=== PATIENT | male | born 1965 | race American Indian/Alaskan Native ===

== ENCOUNTER 2020-12-15 12:16 | Emergency (ER) | payer BC ==
[2020-12-15 15:07] VITALS: BP 148/103
--- NOTE | 2020-12-15 15:13 | Emergency Department Report ---
ED General Adult HPI - General Chief complaint: Overdose Stated complaint: ACCIDENTALLY DRINK HAND PRODUCT LISTER Time Seen by Provider: 12/15/20 15:09 Source: patient Mode of arrival: Ambulatory Limitations: No Limitations - History of Present Illness Initial comments: Patient is a 55-year-old male presents emergency room due to accidentally drinking hand sales support consultant. He states he has had a dry cough over the last couple days and was trying to take cough syrup to suppress his cough. He states that he had a small bottle and actually drank approximately half of it and then realized what he did. He states he then reported to the emergency room. He denies any symptoms at all just was concerned because he knew that he was not supposed to drink that. He denies any headache, vision changes, nausea, vomiting, diarrhea, chest pain, shortness of breath. He denies any fever, rhinorrhea, congestion. He denies any known sick contacts or recent travel. He has a past medical history of hypertension and states he has been on hydrochlorothiazide for 10 years but believes it is no longer helping to completely control his blood pressure. He denies any medication allergies. Nurse Jessica spoke with poison control please see note below Called Poison Control, spoke to Meg, explaining the pt's accidental ingestion of hand sales support consultant, approx 1 1/2 oz, contains 66% ethanol, and glycerool. States that unless that pt drank 113ml or more, it is not a problem. Asked if pt had any sx, pt denies n/v or other problems. States the pt can be safely discharged home, poss needs HTN intervention. - Related Data Previous Rx's Medication Instructions Recorded Last Taken Type amLODIPine 5 mg PO DAILY #30 tab 12/15/20 Unknown Rx ED Review of Systems ROS: Stated complaint: ACCIDENTALLY DRINK HAND PRODUCT LISTER Other details as noted in HPI Comment: All other systems reviewed and negative ED Past Medical Hx - Past Medical History Previous Medical History?: No - Surgical History Past Surgical History?: No - Medications Home Medications: Home Medications Medication Instructions Recorded Confirmed Last Taken Type amLODIPine 5 mg PO DAILY #30 tab 12/15/20 Unknown Rx ED Physical Exam - General Limitations: No Limitations General appearance: alert, in no apparent distress - Head Head exam: Present: atraumatic, normocephalic - Eye Eye exam: Present: normal appearance - ENT ENT exam: Present: mucous membranes moist - Respiratory Respiratory exam: Present: normal lung sounds bilaterally. Absent: respiratory distress, wheezes, rales, rhonchi, stridor, chest wall tenderness, accessory muscle use, decreased breath sounds, prolonged expiratory - Cardiovascular Cardiovascular Exam: Present: regular rate, normal rhythm, normal heart sounds. Absent: systolic murmur, diastolic murmur, rubs, gallop - Neurological Exam Neurological exam: Present: alert, oriented X3 - Psychiatric Psychiatric exam: Present: normal affect, normal mood - Skin Skin exam: Present: warm, dry, intact ED Course Vital Signs 12/15/20 12/15/20 13:07 15:07 Temperature 97.5 F L Pulse Rate 65 71 Respiratory 18 Rate Blood Pressure 172/116 Blood Pressure 148/103 [Right] O2 Sat by Pulse 98 Oximetry ED Medical Decision Making - Medical Decision Making Patient is a 55-year-old male presents emergency room due to accidentally drinking hand sales support consultant. He states he has had a dry cough over the last couple days and was trying to take cough syrup to suppress his cough. He states that he had a small bottle and actually drank approximately half of it and then realized what he did. He states he then reported to the emergency room. He denies any symptoms at all just was concerned because he knew that he was not supposed to drink that. He denies any headache, vision changes, nausea, vomiting, diarrhea, chest pain, shortness of breath. He denies any fever, rhinorrhea, congestion. He denies any known sick contacts or recent travel. He has a past medical history of hypertension and states he has been on hydrochlorothiazide for 10 years but believes it is no longer helping to completely control his blood pressure. He denies any medication allergies. Nurse Lopez spoke with poison control please see note below Called Poison Control, spoke to Meg, explaining the pt's accidental ingestion of hand sales support consultant, approx 1 1/2 oz, contains 66% ethanol, and glycerool. States that unless that pt drank 113ml or more, it is not a problem. Asked if pt had any sx, pt denies n/v or other problems. States the pt can be safely discharged home, poss needs HTN intervention. Initial vitals with elevated blood pressure which improved upon repeat. Patient is asymptomatic. No abnormality on physical examination as documented in chart. Patient will be started on low-dose blood amlodipine and discussed the importance of primary care follow-up and keeping a blood pressure log and to take his blood pressure twice a day. Advised patient Please take medication as prescribed. Please keep a blood pressure log and take your blood pressure and take this to the primary care doctor. Increase your water intake. Eat a low- sodium/low salt diet. incorporate 30-60 minutes daily exercise. follow up with a primary care doctor. Return to emergency room immediately for any new or worsening symptoms. Critical care attestation.: If time is entered above; I have spent that time in minutes in the direct care of this critically ill patient, excluding procedure time. ED Disposition Clinical Impression: Elevated blood pressure reading Accidental ingestion of substance Qualifiers: Encounter type: sequela Qualified Code(s): T65.91XS - Toxic effect of unspecified substance, accidental (unintentional), sequela Disposition: DC-01 TO HOME OR SELFCARE Is pt being admited?: No Does the pt Need Aspirin: No Condition: Stable Instructions: Preventing Poisoning, Adult, Managing Your Hypertension Additional Instructions: Please take medication as prescribed. Please keep a blood pressure log and take your blood pressure and take this to the primary care doctor. Increase your water intake. Eat a low-sodium/low salt diet. incorporate 30-60 minutes daily exercise. follow up with a primary care doctor. Return to emergency room immediately for any new or worsening symptoms. Prescriptions: amLODIPine 5 mg PO DAILY #30 tab Referrals: your, primary care doctor [Other] - 2-3 Days Time of Disposition: 15:11 Print Language: ARMENIAN
== END 2020-12-15 15:25 | disposition home or self-care (01) ==
LOC: ED 12:16
DX: T65.891A Toxic effect of other specified substances, accidental (unintentional), initial encounter (principal); R03.0 Elevated blood-pressure reading, without diagnosis of hypertension; Z79.899 Other long term (current) drug therapy; Y92.89 Other specified places as the place of occurrence of the external cause
CPT/HCPCS: 99281